=== PATIENT | female | born 1960 | race Caucasian/White ===

== ENCOUNTER 2017-01-25 16:25 | Emergency (ER) | payer OTHER ==
[~2017-01-25] VITALS: Ht 160 cm; Wt 57.8 kg
[2017-01-25 17:32] VITALS: BP 139/89
== END 2017-01-25 17:42 | disposition home or self-care (01) ==
LOC: EME 16:25
PROC: 3E0234Z Introduction of Serum, Toxoid and Vaccine into Muscle, Percutaneous Approach (ICD-10-PCS; principal; 2017-01-25)
DX: Z20.3 Contact with and (suspected) exposure to rabies (principal); Z23 Encounter for immunization; S61.451D Open bite of right hand, subsequent encounter; W55.81XD Bitten by other mammals, subsequent encounter
CPT/HCPCS: 99281; 99284